=== PATIENT | male | born 1970 | race Two or more races ===

== ENCOUNTER 2016-12-22 11:21 | Observation (INO) | payer OTHER ==
--- NOTE | ~2016-12-22 | EKG ---
PATIENT: LONA OGDEN UNIT #: [id number] Ventricular Rate: 51 BPM Atrial Rate: 51 BPM P-R Interval: 160 ms QRS Duration: 98 ms Q-T Interval: 436 ms QTC Calculation(Bezet): 401 ms P [place]: 43 degrees Calculated R [place]: 8 degrees Calculated T [place]: 6 degrees Diagnosis Line: Sinus bradycardia Diagnosis Line: Early repolarization Diagnosis Line: Otherwise normal ECG Diagnosis Line: When compared with ECG of 22-DEC-2016 11:24, Diagnosis Line: No significant change was found Diagnosis Line: Confirmed by YANELI SARAVIA MD ([id number]) on 12/24/2016 Diagnosis Line: 5:39:02 AM INTERPRETING MD: RANI PERRY
--- NOTE | ~2016-12-22 | TH ---
Unit #: [id number] #: [id number] Patient: LONA OGDEN [id number] [address] [address] [id number] I MR#: [id number] NAME: LONA OGDEN : 1970 SEX: M STUDY DATE/TIME: 12/23/2016 UNIT: [facility] ROOM: 564 STUDY DESCRIPTION: Attending Physician: Fritz Otero M.D. Primary Care Physician: No Primary Care Physician CARDIOLOGY REPORT EXAM Exercise Cardiolite stress test, nuclear portion. PROCEDURE Using technetium 99m labeled Cardiolite, rest and stress SPECT images were obtained. Multiple SPECT images were obtained in various views including horizontal and vertical long axis and short axis views of the left ventricle. Images were obtained by gated SPECT method. The patient was administered 11.81 mCi of Cardiolite at rest. Patient was administered 35.6 mCi of Cardiolite at peak exercise. Total exercise time is 6 minutes and 38 seconds. On the stress images, there is normal perfusion noted. The rest images show normal perfusion. Comparing rest and stress images, there is no stress-induced ischemia noted. The left ventricular ejection fraction is calculated to be 53%. There is no focal wall motion abnormality seen. CONCLUSION 1. No stress-induced ischemia noted. 2. The left ventricular ejection fraction is calculated to be 53%. 3. There is no focal wall motion abnormality seen. 4. Normal exercise Cardiolite stress test. Dictated by... Kayce Hernández TD: 12/23/2016 10:04 JOB #: [id number] CARDIOLOGY REPORT Page 1 of 1 X Vilma Neff MD <ELECTRONICALLY SIGNED> 01/18/17 1429 CARDIOLOGY REPORT
--- NOTE | ~2016-12-22 | ST ---
Unit #: [id number] #: [id number] Patient: LONA OGDEN [id number] [address] [address] [id number] I MR#: [id number] NAME: LONA OGDEN : 1970 SEX: M STUDY DATE/TIME: 12/23/2016 UNIT: [facility] ROOM: 564 STUDY DESCRIPTION: Stress test Attending Physician: Fritz Otero M.D. Primary Care Physician: No Primary Care Physician CARDIOLOGY REPORT EXAM EKG portion of a Cardiolite exercise stress test. REASON FOR EXAM Chest pain. FINDINGS EKG is sinus bradycardia with a ventricular rate of 52 and nonspecific T wave abnormalities. The patient exercised on the treadmill according to Sammy protocol for 6 minutes and 38 seconds, achieving a work level of 7.9 METs. Resting heart rate was 52. Maximal heart rate was 169 beats per minute representing a 97% of maximal age-predicted heart rate. The patient's symptoms were fatigue. There were no acute ischemic changes. The test was stopped due to achieving maximal heart rate. IMPRESSION 1. EKG during the test was equivocal to baseline. No acute ischemic changes. 2. The patient had no complaints of chest pain, palpitations or dizziness. He did have some fatigue and some shortness of breath which resolved in the recovery phase. 3. Maximum heart rate response was 169 beats per minute with a maximum blood pressure of 162/78 mmHg. 4. Cardiolite was injected after 5 minutes and 36 seconds. Radionuclide tests are pending. Please correlate with nuclear images. Dictated by... Lorin Daugherty APRN for Kayce Hernández TD: 12/23/2016 09:51 JOB #: [id number] Unit #: [id number] #: [id number] Patient: LONA OGDEN CARDIOLOGY REPORT Page 1 of 1 X CARDIOLOGY REPORT
--- NOTE | ~2016-12-22 | DS ---
Unit #: [id number] #: [id number] Patient: LONA OGDEN [id number] [address] [place], [place] [address] [id number] I MR#: [id number] NAME: LONA OGDEN ROOM: 564 Age: 46 Sex: M Admission Date: 12/22/2016 : 1970 Discharge Date: Attending Physician: Fritz Otero M.D. DISCHARGE SUMMARY SHORT STAY SUMMARY CHIEF COMPLAINT Chest pain. HISTORY OF PRESENT ILLNESS This is a 46-year-old male with a past medical history of left hand and left foot surgery. He denies a prior history of diabetes mellitus, hypertension, or hyperlipidemia. He has smoked three to four cigarettes per day for the last 25 years and reportedly drinks 10 beers per day. He presented to the ER with left chest pain with numbness and tingling in his left arm and hand. He denies shortness of air, jaw pain, diaphoresis, or dizziness. He did experience some nausea with the chest pain. He reports he has been having this pain intermittently for the past month. It occurs at rest and has resolved spontaneously within 10 minutes or so in the past. The pain is worse with inspiration. His troponin and EKG are negative for ischemic changes. He underwent a Cardiolite exercise stress test today. PAST MEDICAL HISTORY 1. Tobacco abuse. 2. Ethyl alcohol. 3. Left hand surgery. 4. Left foot surgery. SOCIAL HISTORY He has smoked three to four cigarettes per day for the last 25 years. He reports drinking 10 beers per day. Denies illicit drug use. FAMILY HISTORY Denies a family history of coronary artery disease. ALLERGIES No known drug allergies. HOME MEDICATIONS No reported home medications. REVIEW OF SYSTEMS Otherwise negative except for what was stated in the History of Present Illness. Unit #: [id number] #: [id number] Patient: LONA OGDEN PHYSICAL EXAMINATION VITAL SIGNS: Temperature 98, heart rate 54, respiratory rate 18, blood pressure 116/78, and 95% O2 on room air. Height 66 inches and weight 69.5 kg. GENERAL: A 46-year-old male seen in the stress lab sitting in a chair in no acute distress. HEENT: Head is atraumatic and normocephalic. Pupils are equal and round. Mucous membranes are moist. NECK: Supple. Trachea is midline. Negative for JVD. LUNGS: Clear to auscultation. Nonlabored respirations. CARDIOVASCULAR: S1 and S2, regular rate and rhythm. Negative for murmurs, rubs, or gallops. ABDOMEN: Soft, nontender, and nondistended. EXTREMITIES: Pulses are palpable. No pedal edema. No cyanosis. NEUROLOGIC: Alert and oriented x3. Moves all extremities equally and follows commands without difficulty. DIAGNOSTIC STUDIES LABORATORY: Sodium 137, potassium 3.7, chloride 106, BUN 9, creatinine 0.7, and glucose 103. Hemoglobin 15.5, hematocrit 46.8, white blood cell count 9.7, and platelets 123,000. PT 11.3, INR 1, and PTT 28.2. Point of care troponin was less than 0.05 and repeat troponin less than 0.03 x2. Lipid profile: Cholesterol 122, triglycerides 53, LDL 58, and HDL 53. IMAGING: Chest x-ray showed no acute findings. CARDIOLOGY: EKG showed normal sinus rhythm with ventricular rate of 52 and nonspecific T wave abnormalities. Echocardiogram done December 23, 2016, revealed normal LVEF of 55%, no wall abnormalities, normal valvular function, right ventricular systolic pressure is normal, and there is no evidence of a pericardial effusion. ASSESSMENT 1. Atypical chest pain, negative ischemic workup. 2. Tobacco abuse. 3. Ethyl alcohol. PLAN Cardiolite exercise stress test was negative for ischemia with an EF of 53%. A 2D echocardiogram revealed normal LVEF of 50% to 55% with no wall abnormalities. His troponin and EKG were negative for ischemia. He will be discharged home. He was encouraged to quit smoking and significantly reduce his alcohol intake. He was instructed to follow up with his primary care provider to evaluate for other causes of chest pain. Patient was amenable to this. Dictated by... Lorin Daugherty APRN for Kayce Hernández TD: 12/23/2016 14:06 JOB #: [id number] Unit #: [id number] #: [id number] Patient: LONA OGDEN DISCHARGE SUMMARY Page 1 of 1 X X DISCHARGE SUMMARY
--- NOTE | ~2016-12-22 | CR72 ---
[facility] A Service of [facility] & [facility] RADIOLOGY TEXT RESULTS PATIENT: LONA OGDEN LOCATION: [facility] : [birth year] UNIT #: [id number] AGE: [address]: Fritz Otero MD SEX: M ORDER DR: [id number] [facility] [address] [facility]. [place], [place] [address] [id number] MR#: [id number] Acc #: [id number] NAME: RONNY OGDEN : 1970 SEX: M STUDY DATE/TIME: 12/22/2016 11:57 UNIT: [facility] ROOM: STUDY DESCRIPTION: CR Chest Single View Portable Attending Physician: Ezio Hogan M.D. Ordering Physician: Ed Doctor [id number] [facility] Primary Care Physician: Primary Care Physician No MEDICAL IMAGING REPORT This report is preliminary unless electronic signature is present EXAM Portable chest, 12/22/2016 HISTORY Chest pain and left arm numbness for 1 hour today. FINDINGS There is mild cardiac enlargement. There is poor inspiratory result with bibasilar atelectasis. The lungs are otherwise clear. There are no pleural effusions. IMPRESSION Mild cardiac enlargement. No active pulmonary disease. Dictated by... Valdemar Pavon M.D. THIS IS AN ELECTRONICALLY VERIFIED REPORT Valdemar Pavon M.D. at 12/23/2016 8:07 AM TUCKER/ashlie TD: 12/22/2016 12:18 JOB #: [id number] MEDICAL IMAGING REPORT Page 1 of 1 COPY
--- NOTE | ~2016-12-22 | EKG ---
PATIENT: RONNY OGDEN UNIT #: [id number] Ventricular Rate: 60 BPM Atrial Rate: 60 BPM P-R Interval: 152 ms QRS Duration: 74 ms Q-T Interval: 404 ms QTC Calculation(Bezet): 404 ms P [place]: 48 degrees Calculated R [place]: -2 degrees Calculated T [place]: -4 degrees Diagnosis Line: Normal sinus rhythm Diagnosis Line: Moderate voltage criteria for LVH, may be normal Diagnosis Line: variant Diagnosis Line: Borderline ECG Diagnosis Line: No previous ECGs available Diagnosis Line: Confirmed by JATIN TOPETE MD ([id number]) on Diagnosis Line: 12/22/2016 10:49:24 PM INTERPRETING MD: YASIR
[2016-12-22 12:05] LABS: BASOPHIL# 0.1 X10e3 (0-0.3); EOSINOPHIL# 0.1 X10e3 (0-0.7); EOSINOPHIL% 1.3 % (0.0-7.0); HEMATOCRIT 46.8 % (38.0-50.0); HEMOGLOBIN 15.5 gm/dL (13.0-16.0); LYMPHOCYTE# 2.1 X10e3 (1.0-3.5); LYMPHOCYTE% 21.5 % (17.0-45.0); MEAN CELL VOLUME 96.3 FL (83-96); MEAN CORPUSCULAR HEMOGLOBIN 31.9 PG (28-34); MEAN CORPUSCULAR HGB CONC 33.1 g/dL (30-36); MEAN PLATELET VOLUME 10.8 FL (6.5-11.5); MONOCYTE# 1.5 X10e3 (0-1.0); MONOCYTE% 15.1 % (3.0-12.0); NEUTROPHIL# 5.9 X10e3 (1.5-7.1); NEUTROPHIL% 61.1 % (40-75); PLATELET COUNT 123 X10e3 (140-420); RED BLOOD COUNT 4.86 X10e (3.90-5.60); RED CELL DISTRIBUTION WIDTH 13.4 % (11.0-15.5); WHITE BLOOD COUNT 9.7 X10e3 (4.0-10.5)
[2016-12-22 12:06] LABS: DIFF IND NO
[2016-12-22 12:18] LABS: POC - CKMB <1.0 ng/mL (0.0-7.9); POC - TROPONIN <0.05 ng/mL (<=0.05)
[2016-12-22 12:20] LABS: PARTIAL THROMBOPLASTIN TIME 28.2 SECONDS (23.5-31.3); PROTHROMBIN TIME (PATIENT) 11.3 SECONDS (10.0-11.7)
[2016-12-22 12:25] LABS: CALCIUM SERUM 9.1 mg/dL (8.4-10.2); CREATININE SERUM 0.8 mg/dL (0.6-1.4); GLOM FILT RATE Estimated 106.4 mL/min (>60); POTASSIUM 3.4 mmol/L (3.5-5.1)
[2016-12-22] MEDS ORDERED: NO HOME MEDS PER PT (21:54)
[2016-12-23 01:58] LABS: MB 0.6 ng/ml
[2016-12-23 07:41] LABS: BUN/CREATININE RATIO 12.85; CREATININE SERUM 0.7 mg/dL (0.6-1.4); GLOM FILT RATE Estimated 112.4 mL/min (>60); POTASSIUM 3.7 mmol/L (3.5-5.1)
== END 2016-12-23 15:10 | disposition home or self-care (01) | DRG 313 ==
LOC: CED 11:21 → C5C 17:37 → CEDOF 17:37 → C5C 20:30
PROVIDERS: Emergency Medicine; Internal Medicine Cardiovascular Disease
DX: R07.89 Other chest pain (principal); F17.210 Nicotine dependence, cigarettes, uncomplicated; I51.7 Cardiomegaly
CPT/HCPCS: 36415; 71010; 78452; 80048; 80061; 82550; 82553; 84484; 85025; 85610; 85730; 93005; 93017; 93306; 99285; A9500; G0378